=== PATIENT | female | born 1995 | race Caucasian/White ===

== ENCOUNTER 2017-02-28 10:35 | Outpatient (CLI) | payer OTHER ==
[~2017-02-28 10:35] MED LIST: AMOX1TAB12 PO; AMOXICILLIN500 M1 PO; BUCALSEP SPRAY30 ML MM; CIPRO500 MG PO; GILTUSS TR TAB1 EACH PO; ORASEP SPRAY30 ML MM; URIN D.S. TABLE1 TAB PO; VOLTAREM 50 MG
== END 2017-02-28 10:45 | disposition home or self-care (01) ==
LOC: SONOGRAMA 10:35
DX: N94.0 Mittelschmerz (principal); R10.2 Pelvic and perineal pain; N94.89 Other specified conditions associated with female genital organs and menstrual cycle

== ENCOUNTER → 2017-03-19 14:54 | Outpatient (CLI) | payer OTHER | END | disposition home or self-care (01) | LOC: LAB 14:54 | DX: Z11.3 Encounter for screening for infections with a predominantly sexual mode of transmission (principal); Z11.59 Encounter for screening for other viral diseases ==

== ENCOUNTER → 2017-04-20 | Emergency (ER) | payer OTHER ==
[~2017-04-20] VITALS: Ht 162.6 cm; Wt 99.8 kg
== END | disposition home or self-care (01) ==
LOC: ER 18:18
DX: R53.81 Other malaise (principal)

== ENCOUNTER → 2017-04-23 | Outpatient (CLI) | payer OTHER | END | disposition home or self-care (01) | LOC: PPHC 10:53 | DX: J11.1 Influenza due to unidentified influenza virus with other respiratory manifestations (principal) ==

== ENCOUNTER 2017-10-02 13:52 | Outpatient (CLI) | payer OTHER | END 2017-10-02 14:05 | disposition home or self-care (01) | LOC: LAB 13:52 | DX: N39.0 Urinary tract infection, site not specified (principal) ==

== ENCOUNTER → 2017-12-10 12:08 | Outpatient (CLI) | payer OTHER ==
[~2017-12-10 12:08] MED LIST changes: +KETO10TA2 PO
== END | disposition home or self-care (01) ==
LOC: LAB 12:08
DX: J11.1 Influenza due to unidentified influenza virus with other respiratory manifestations (principal); J03.01 Acute recurrent streptococcal tonsillitis; N39.0 Urinary tract infection, site not specified

== ENCOUNTER 2017-12-10 13:10 | Emergency (ER) | payer OTHER ==
[~2017-12-10] VITALS: Ht 162.6 cm; Wt 101.6 kg
[~2017-12-10 13:10] MED LIST changes: -KETO10TA2 PO
[2017-12-10] MEDS ORDERED: CIPRO500 MG PO (15:37)
[2017-12-10] MEDS ORDERED: KETO10TA2 PO (15:37)
== END 2017-12-10 17:26 | disposition home or self-care (01) ==
LOC: ER 13:10
DX: R11.10 Vomiting, unspecified (principal); N39.0 Urinary tract infection, site not specified

== ENCOUNTER 2018-03-18 16:13 | Emergency (ER) | payer OTHER ==
[~2018-03-18] VITALS: Ht 162.6 cm; Wt 99.8 kg
[~2018-03-18 16:13] MED LIST changes: +KETO10TA2 PO
== END 2018-03-18 21:31 | disposition home or self-care (01) ==
LOC: ER 16:13
DX: B34.9 Viral infection, unspecified (principal)

== ENCOUNTER 2018-04-24 15:22 | Outpatient (CLI) | payer OTHER | END 2018-04-24 18:00 | disposition home or self-care (01) | LOC: LAB 15:22 | DX: Z11.59 Encounter for screening for other viral diseases (principal) ==

== ENCOUNTER 2018-04-28 12:21 | Outpatient (CLI) | payer OTHER | END 2018-04-28 12:27 | disposition home or self-care (01) | LOC: LAB 12:21 | DX: E78.49 Other hyperlipidemia (principal); R42 Dizziness and giddiness; R51 Headache; Z00.00 Encounter for general adult medical examination without abnormal findings ==

== ENCOUNTER 2018-10-06 14:12 | Outpatient (CLI) | payer OTHER | END 2018-10-06 14:18 | disposition home or self-care (01) | LOC: LAB 14:12 | DX: J11.1 Influenza due to unidentified influenza virus with other respiratory manifestations (principal); R05 Cough ==

== ENCOUNTER 2018-12-28 12:29 | Outpatient (CLI) | payer OTHER | END 2018-12-28 12:35 | disposition home or self-care (01) | LOC: LAB 12:29 | DX: M54.2 Cervicalgia (principal); M54.5 Low back pain; M54.6 Pain in thoracic spine; Z00.00 Encounter for general adult medical examination without abnormal findings; I10 Essential (primary) hypertension; E78.00 Pure hypercholesterolemia, unspecified; N39.0 Urinary tract infection, site not specified; Z11.4 Encounter for screening for human immunodeficiency virus [HIV]; Z21 Asymptomatic human immunodeficiency virus [HIV] infection status; R79.89 Other specified abnormal findings of blood chemistry ==

== ENCOUNTER 2019-11-07 11:58 | Emergency (ER) | payer OTHER ==
[~2019-11-07] VITALS: Ht 162.6 cm; Wt 104.3 kg
== END 2019-11-07 15:54 | disposition home or self-care (01) ==
LOC: ER 11:58
DX: J03.90 Acute tonsillitis, unspecified (principal); Z03.818 Encounter for observation for suspected exposure to other biological agents ruled out

== ENCOUNTER → 2019-12-15 09:12 | Outpatient (CLI) | payer OTHER ==
[~2019-12-15 09:12] MED LIST changes: +CLONAZEPAM0.5 MG PO; +VISTARIL50 MG PO
== END | disposition home or self-care (01) ==
LOC: LAB 09:12
PROVIDERS: ATTEND Obstetrics & Gynecology
DX: E03.8 Other specified hypothyroidism (principal); Z00.00 Encounter for general adult medical examination without abnormal findings; I10 Essential (primary) hypertension; E78.00 Pure hypercholesterolemia, unspecified; Z11.4 Encounter for screening for human immunodeficiency virus [HIV]; R79.89 Other specified abnormal findings of blood chemistry; Z21 Asymptomatic human immunodeficiency virus [HIV] infection status; E55.9 Vitamin D deficiency, unspecified; N39.0 Urinary tract infection, site not specified

== ENCOUNTER 2019-12-16 11:47 | Emergency (ER) | payer OTHER ==
[~2019-12-16] VITALS: Ht 160 cm; Wt 99.8 kg
[~2019-12-16 11:47] MED LIST changes: -CLONAZEPAM0.5 MG PO; -VISTARIL50 MG PO
[2019-12-16] MEDS ORDERED: VISTARIL50 MG PO (16:05)
[2019-12-16] MEDS ORDERED: CLONAZEPAM0.5 MG PO (16:05)
== END 2019-12-16 16:48 | disposition home or self-care (01) ==
LOC: ER 11:47
DX: R07.89 Other chest pain (principal); F41.0 Panic disorder [episodic paroxysmal anxiety]; Z03.818 Encounter for observation for suspected exposure to other biological agents ruled out

== ENCOUNTER 2020-05-08 10:14 | Outpatient (CLI) | payer OTHER ==
[~2020-05-08 10:14] MED LIST changes: +CLONAZEPAM0.5 MG PO; +VISTARIL50 MG PO
== END 2020-05-08 10:21 | disposition home or self-care (01) ==
LOC: LAB 10:14
DX: N91.0 Primary amenorrhea (principal); I10 Essential (primary) hypertension; E03.8 Other specified hypothyroidism; E78.89 Other lipoprotein metabolism disorders; N39.0 Urinary tract infection, site not specified; Z11.4 Encounter for screening for human immunodeficiency virus [HIV]; Z12.11 Encounter for screening for malignant neoplasm of colon; E55.9 Vitamin D deficiency, unspecified; Z21 Asymptomatic human immunodeficiency virus [HIV] infection status; R79.89 Other specified abnormal findings of blood chemistry

== ENCOUNTER 2020-05-09 14:14 | Outpatient (CLI) | payer OTHER | END 2020-05-09 14:24 | disposition home or self-care (01) | LOC: SONOGRAMA 14:14 → MAMO-SONO 14:30 | PROVIDERS: ATTEND Obstetrics & Gynecology | DX: N94.0 Mittelschmerz (principal); R10.2 Pelvic and perineal pain; N94.89 Other specified conditions associated with female genital organs and menstrual cycle ==

== ENCOUNTER 2020-12-06 21:12 | Emergency (ER) | payer OTHER ==
[~2020-12-06] VITALS: Ht 160 cm; Wt 95.3 kg
[2020-12-06] MEDS ORDERED: BUTALBIT-ACETA1 EACH PO (23:22)
== END 2020-12-07 00:42 | disposition home or self-care (01) ==
LOC: ER 21:12
DX: R51.9 Headache, unspecified (principal)

== ENCOUNTER 2021-01-31 03:23 | Emergency (ER) | payer OTHER ==
[~2021-01-31] VITALS: Ht 162.6 cm; Wt 113.4 kg
[~2021-01-31 03:23] MED LIST changes: +BUTALBIT-ACETA1 EACH PO
== END 2021-01-31 12:56 | disposition home or self-care (01) ==
LOC: ER 03:23
DX: N20.1 Calculus of ureter (principal); N20.0 Calculus of kidney

== ENCOUNTER 2021-04-02 09:32 | Outpatient (CLI) | payer OTHER | END 2021-04-02 09:33 | disposition home or self-care (01) | LOC: LAB 09:32 | PROVIDERS: ATTEND Obstetrics & Gynecology | DX: I10 Essential (primary) hypertension (principal); Z00.00 Encounter for general adult medical examination without abnormal findings; E03.9 Hypothyroidism, unspecified; E78.00 Pure hypercholesterolemia, unspecified; Z11.4 Encounter for screening for human immunodeficiency virus [HIV]; E55.9 Vitamin D deficiency, unspecified; Z21 Asymptomatic human immunodeficiency virus [HIV] infection status; R79.9 Abnormal finding of blood chemistry, unspecified; R78.89 Finding of other specified substances, not normally found in blood ==

== ENCOUNTER 2021-04-18 16:12 | Emergency (ER) | payer OTHER ==
[~2021-04-18] VITALS: Ht 162.6 cm; Wt 117.5 kg
[2021-04-18] MEDS ORDERED: DICLOFENAC SODI75 MG PO (18:26)
== END 2021-04-18 18:45 | disposition home or self-care (01) ==
LOC: ER 16:12
DX: R10.2 Pelvic and perineal pain (principal); N93.8 Other specified abnormal uterine and vaginal bleeding; Z88.2 Allergy status to sulfonamides

== ENCOUNTER 2022-04-24 14:45 | Outpatient (CLI) | payer OTHER | END 2022-04-24 14:50 | disposition home or self-care (01) | LOC: LAB 14:45 | PROVIDERS: ATTEND Obstetrics & Gynecology | DX: Z00.00 Encounter for general adult medical examination without abnormal findings (principal); I10 Essential (primary) hypertension; E03.9 Hypothyroidism, unspecified; E78.00 Pure hypercholesterolemia, unspecified; N39.0 Urinary tract infection, site not specified; Z11.4 Encounter for screening for human immunodeficiency virus [HIV]; E55.9 Vitamin D deficiency, unspecified; Z21 Asymptomatic human immunodeficiency virus [HIV] infection status; R79.9 Abnormal finding of blood chemistry, unspecified; R79.89 Other specified abnormal findings of blood chemistry ==

== ENCOUNTER → 2022-04-24 | Outpatient (CLI) | payer OTHER ==
[~2022-04-24] MED LIST changes: +DICLOFENAC SODI75 MG PO; +NORFLEX100MG PO
== END | disposition home or self-care (01) ==
LOC: SONOGRAMA 13:11
DX: R10.2 Pelvic and perineal pain (principal); N63.0 Unspecified lump in unspecified breast; N64.59 Other signs and symptoms in breast; N64.9 Disorder of breast, unspecified

== ENCOUNTER → 2022-04-24 | Emergency (ER) | payer OTHER ==
[~2022-04-24] VITALS: Ht 162.6 cm; Wt 113.4 kg
== END | disposition home or self-care (01) ==
LOC: ER 06:03
DX: M94.0 Chondrocostal junction syndrome [Tietze] (principal); Z88.2 Allergy status to sulfonamides

== ENCOUNTER 2022-06-18 19:30 | Emergency (ER) | payer OTHER ==
[~2022-06-18] VITALS: Ht 162.6 cm; Wt 117.9 kg
== END 2022-06-18 22:20 | disposition home or self-care (01) ==
LOC: ER 19:30
DX: J06.9 Acute upper respiratory infection, unspecified (principal); Z20.822 Contact with and (suspected) exposure to COVID-19; Z88.2 Allergy status to sulfonamides; Z88.8 Allergy status to other drugs, medicaments and biological substances

== ENCOUNTER 2022-08-26 09:37 | Outpatient (CLI) | payer OTHER | END 2022-08-26 09:39 | disposition home or self-care (01) | LOC: LAB 09:37 | PROVIDERS: ATTEND Internal Medicine | DX: E11.65 Type 2 diabetes mellitus with hyperglycemia (principal); E78.2 Mixed hyperlipidemia; I10 Essential (primary) hypertension; E03.8 Other specified hypothyroidism; C73 Malignant neoplasm of thyroid gland; D50.8 Other iron deficiency anemias; R30.0 Dysuria ==

== ENCOUNTER 2022-08-30 07:36 | Outpatient (CLI) | payer OTHER | END 2022-08-30 07:37 | disposition home or self-care (01) | LOC: LAB 07:36 | PROVIDERS: ATTEND Internal Medicine | DX: E11.65 Type 2 diabetes mellitus with hyperglycemia (principal); E78.2 Mixed hyperlipidemia; I10 Essential (primary) hypertension; E03.8 Other specified hypothyroidism; C73 Malignant neoplasm of thyroid gland; D50.8 Other iron deficiency anemias; R90.0 Intracranial space-occupying lesion found on diagnostic imaging of central nervous system ==

== ENCOUNTER 2022-10-23 10:45 | Outpatient (CLI) | payer OTHER | END 2022-10-23 10:59 | disposition home or self-care (01) | LOC: TOM 10:45 | PROVIDERS: ATTEND Internal Medicine | DX: R10.84 Generalized abdominal pain (principal); R10.30 Lower abdominal pain, unspecified ==

== ENCOUNTER 2024-10-23 23:54 | Emergency (ER) | payer OTHER ==
[~2024-10-23] VITALS: Ht 162.6 cm; Wt 113.4 kg
[2024-10-24] MEDS ORDERED: LORazepam 2 MG/ML VIAL IM ONE (01:15)
[2024-10-24] MEDS ORDERED: HYDROXYZINE HCL25 MG PO (04:26)
== END 2024-10-24 04:30 | disposition home or self-care (01) ==
LOC: ER 23:54
DX: F41.9 Anxiety disorder, unspecified (principal); R06.02 Shortness of breath; R00.2 Palpitations; R07.9 Chest pain, unspecified; Z88.2 Allergy status to sulfonamides